=== PATIENT | female | born 1975 | race African-American/Black ===

== ENCOUNTER 2017-01-08 21:00 | Emergency (ER) | payer MEDICAID, OTHER ==
[2017-01-08 21:15] VITALS: BP 118/65; PULSE 75; RESP 16; TEMP 100; O2SAT 98
--- NOTE | 2017-01-08 21:29 | EDPHY ---
HPI/HX/ROS/PE/MDM Narrative: CHIEF COMPLAINT: Fever, body aches HPI: The patient is a 41-year-old female with no significant past medical history. She complains of approximately 1 day of fever as high as 103 degrees F as well as diffuse body aches. She denies sore throat or headache. She does complain of nausea. She denies vomiting or dysuria. Her came down with similar symptoms at approximately the same time. Other people in the household, including her 2 teenage children are asymptomatic. The patient has a 5-month-old baby at home who recently received her immunizations and did have a fever as high as 101 degrees F. the patient tried taking a bath in Epsom salts which relieved her symptoms somewhat. REVIEW OF SYSTEMS: Aside from elements discussed in the HPI, a comprehensive 10-point review of systems was reviewed and is negative. PMH: History of HELLP syndrome during approximately 5 months ago. Otherwise negative. SOCIAL HISTORY: . Works in a [employer] center. Denies drug abuse. PHYSICAL EXAM: General:Patient is alert, in no acute distress. Appears well hydrated, well appearing and quite talkative. ENT:Eyes are normal to inspection. ENT inspection normal. Neck: Normal inspection. Full range of motion. No meningismus. Respiratory:No respiratory distress. Breath sounds normal bilaterally. Cardiovascular: Regular rate and rhythm. Strong peripheral pulses. Normal cap refill. Abdomen:The abdomen is nontender to palpation. There are no peritoneal signs. There are normal bowel sounds. Back: Normal to inspection. No tenderness to palpation. Skin: Normal color. No rash. Warm and dry. Extremities: Normal appearance. Full range of motion. Neuro: Oriented x3. Normal motor function. Normal sensory function. ED Course: Patient refused urine sample as she is sure this is not UTI. MDM: This is a healthy young woman who presents with flu-like symptoms. Her vitals are normal and she is quite well-appearing. I would normally give her a simple clinical diagnosis of influenza based on symptomatology alone, but she has a 5- month old baby at home, so I think this raises the stakes on confirming the infectious agent. - Data Points Imaging: Discussed imaging studies w/ call or contact centre coach Radiologist, I viewed and interpreted images myself Laboratory Results: 01/08/17 01/08/17 21:00 21:00 Influenza A & B (PCR) Pending Influenza A,B Rapid Pending General Time Seen by Provider: 01/08/17 21:11 Initial Vital Signs: Initial Vital Signs Temperature (C) 37.8 C 01/08/17 21:00 Heart Rate 75 01/08/17 21:00 Respiratory Rate 16 01/08/17 21:00 Blood Pressure 118/65 01/08/17 21:00 O2 Sat (%) 98 01/08/17 21:00 O2 Delivery Mode Room Air Allergies/Adverse Reactions: amoxicillin Allergy (Severe, Verified 01/08/17 21:16) Swelling/neck,face,throat Home Medications: Medication Instructions Recorded NK [No Known Home Meds] 01/08/17 Departure - Departure Disposition: Home, Routine, Self-Care Clinical Impression: Viral syndrome Condition: Good Instructions: Ondansetron (By mouth), Viral Syndrome (ED) Additional Instructions: Use ibuprofen and Tylenol as needed for fever and body aches. Follow up with your primary care physician within 72 hours for reevaluation. Drink plenty of fluids. Return to the emergency department immediately for high fever, severe headache or neck pain, difficulty breathing, abdominal pain, rash or other worsening of condition. Contact your loss prevention auditor 1st thing in the morning to determine next step of action with regard to your baby. Call back to the ER in 1-2 hours to obtain results of your flu testing. An additional test, called "Respiratory Panel PCR" will likely be available either in 4 hours or tomorrow morning. Referrals: NONE *PRIMARY CARE P,. [Primary Care Provider] - As per Instructions Stand Alone Forms: Work Excuse
[2017-01-08] MEDS ORDERED: ONDANSETRON 4MG PREPACK#2 BTL TAKEHOME ONE (21:33)
== END 2017-01-08 21:55 | disposition home or self-care (01) ==
LOC: CED 21:00
DX: B34.9 Viral infection, unspecified (principal)
CPT/HCPCS: 71020-PO; 87400-PO